=== PATIENT | female | born 1995 | race African-American/Black ===

== ENCOUNTER 2024-09-01 23:24 | Emergency (ER) | payer MEDICAID ==
[~2024-09-01] VITALS: Ht 177.8 cm; Wt 181.8 kg
[2024-09-01 23:37] VITALS: TEMP 98.4
[2024-09-02 00:10] LABS: COVID AG,FIA SOURCE NASAL SWAB
[2024-09-02 00:14] LABS: HEMATOCRIT 37.1 % (36-46); HEMOGLOBIN 11.5 g/dL (12.0-16.0); LYMPHOCYTES # (AUTO) 3.4 K/uL (1.0-4.8); LYMPHOCYTES % (AUTO) 25.9 % (22.0-44.0); MEAN CORPUSCULAR HEMOGLOBIN 25.9 pg (26.0-34.0); MEAN CORPUSCULAR VOLUME 84 fL (80-100); MONOCYTES # (AUTO) 0.7 K/uL (0.1-1.0); MONOCYTES % (AUTO) 5.1 % (2.0-9.0); PLATELET COUNT (AUTO) 329 K/uL (150-450); RED BLOOD CELL COUNT(AUTO) 4.44 MIL/uL (4.00-5.20); RED CELL DISTRIBUTION WIDTH 14.8 % (11.5-14.5); WHITE BLOOD COUNT (AUTO) 13.1 K/uL (4.5-11.0)
[2024-09-02 00:18] LABS: INFLUENZA TYPE A NEGATIVE FOR TYPE A (NEGATIVE); INFLUENZA TYPE B NEGATIVE FOR TYPE B (NEGATIVE); SARS-COV2 (COVID) ANTIGEN,FIA Negative (Negative)
[2024-09-02 00:26] VITALS: BP 128/63
[2024-09-02 00:26] LABS: ANION GAP 8 mmol/L (8-16); CALCIUM, TOTAL 8.7 mg/dL (8.8-10.5); CARBON DIOXIDE 30 mmol/L (22-29); CHLORIDE 104 mmol/L (98-107); CREATININE 0.85 mg/dL (0.60-1.30); GLOMERULAR FILTR. RATE CALC > 60 mL/min (>60); GLUCOSE,RANDOM 87 mg/dL (70-110); POTASSIUM 3.7 mmol/L (3.5-5.1); SODIUM SERUM 142 mmol/L (136-145); UREA NITROGEN, BLOOD 10 mg/dL (7-18)
[2024-09-02] MEDS: MethylPREDNISolone SOD SUCC 125 MG/2 ML VIAL IVP ONE (00:31)
[2024-09-02] MEDS ORDERED: 0.9% SODIUM CHLORIDE 15 ML NEB SOLUTION NEB ONE ×2 (00:31→01:37)
[2024-09-02] MEDS: SODIUM CHLORIDE 0.9% 1,000 ML IV ONE (00:32)
[2024-09-02] MEDS: IPRATROPIUM BROMIDE 0.5 MG/2.5 ML NEB SOLUTION NEB ONE ×2 (00:34→01:44)
[2024-09-02] MEDS: ALBUTEROL SULFATE 2.5 MG/0.5 ML 5 ML NEB SOLUTION NEB ONE ×2 (00:34→01:44)
[2024-09-02 00:36] LABS: TROPONIN I-HIGH SENSITIVITY Less Than 4 ng/L (<51)
[2024-09-02 00:37] LABS: B-TYPE NATRIURETIC PEPTIDE < 5 pg/mL (0-100)
[2024-09-02 00:40] VITALS: PULSE 97; RESP 18; O2SAT 93
[2024-09-02 00:50] LABS: ALANINE AMINOTRANSFERASE 22 U/L (12-78); ALBUMIN 3.1 g/dL (3.4-5.0); ALKALINE PHOSPHATASE 65 U/L (46-116); ASPARTATE AMINOTRANSFERASE 12 U/L (15-37); BILIRUBIN,TOTAL 0.2 mg/dL (0.1-1.0); CREATINE KINASE, TOTAL ONLY 136 U/L (26-192); TOTAL PROTEIN, SERUM 6.6 g/dL (6.4-8.2)
[2024-09-02 01:40] VITALS: PULSE 107; RESP 18; O2SAT 94
[2024-09-02] MEDS: ALBUTEROL SULFATE HFA 90 MCG/PUFF 8 GM INHALER IH ONE (01:43)
[2024-09-02 01:45] VITALS: PULSE 81; RESP 20; O2SAT 94
[2024-09-02] MEDS ORDERED: ALBU1.252 NEB (02:07)
[2024-09-02] MEDS ORDERED: PRED-554 PO (02:07)
== END 2024-09-02 03:08 | disposition left against medical advice (07) ==
LOC: EMS 23:24
DX: J45.901 Unspecified asthma with (acute) exacerbation (principal); R06.02 Shortness of breath; R05.9 Cough, unspecified; Z20.822 Contact with and (suspected) exposure to COVID-19
CPT/HCPCS: 71045; 80053; 82550; 83735; 83880; 84484; 84703; 85025; 87804; 93005; 94644; 96361; 96374; 99291; J2919; J3535; J7030; 36415-L1; 36415-TC

== ENCOUNTER 2024-10-15 15:51 | Emergency (ER) | payer MEDICAID ==
[~2024-10-15] VITALS: Ht 177.8 cm; Wt 186.4 kg
[~2024-10-15 15:51] MED LIST: ALBU1.252 NEB
[2024-10-15 15:56] VITALS: TEMP 97.9
[2024-10-15] MEDS ORDERED: 0.9% SODIUM CHLORIDE 15 ML NEB SOLUTION NEB ONE (18:29)
[2024-10-15] MEDS: IPRATROPIUM BROMIDE 0.5 MG/2.5 ML NEB SOLUTION NEB ONE (18:31)
[2024-10-15] MEDS: LEVALBUTEROL 1.25 MG/0.5 ML NEB SOLUTION NEB ONE (18:31)
[2024-10-15 18:38] VITALS: PULSE 86; RESP 18; O2SAT 98
[2024-10-15] MEDS: DEXAMETHASONE SOD PHOS 4 MG/ML 5 ML VIAL IM ONE (19:05)
[2024-10-15] MEDS ORDERED: ALBU18HF12 IH (19:07)
[2024-10-15] MEDS ORDERED: METH4TAB3 PO (19:07)
[2024-10-15 20:17] VITALS: BP 126/70; PULSE 82; RESP 18; O2SAT 97
== END 2024-10-15 20:18 | disposition home or self-care (01) ==
LOC: EMS 15:51
DX: J45.901 Unspecified asthma with (acute) exacerbation (principal)
CPT/HCPCS: 99285; 94644; 96372; J1100; 94060

== ENCOUNTER 2024-11-17 23:59 | Emergency (ER) | payer MEDICAID ==
[~2024-11-17] VITALS: Ht 177.8 cm; Wt 185.4 kg
[~2024-11-17 23:59] MED LIST changes: +ALBU18HF12 IH; +METH4TAB3 PO
[2024-11-18 00:18] VITALS: TEMP 98.3
[2024-11-18 00:38] LABS: BASOPHILS % (AUTO) 0.9 % (0.0-2.0); HEMATOCRIT 36.3 % (36-46); HEMOGLOBIN 11.6 g/dL (12.0-16.0); LYMPHOCYTES # (AUTO) 2.8 K/uL (1.0-4.8); LYMPHOCYTES % (AUTO) 25.6 % (22.0-44.0); MEAN CORPUSCULAR HEMOGLOBIN 26.9 pg (26.0-34.0); MEAN CORPUSCULAR VOLUME 84 fL (80-100); MONOCYTES # (AUTO) 0.5 K/uL (0.1-1.0); MONOCYTES % (AUTO) 4.2 % (2.0-9.0); NEUTROPHILS # (AUTO) 6.6 K/uL (1.8-7.7); NEUTROPHILS % (AUTO) 61.3 % (40.0-70.0); PLATELET COUNT (AUTO) 312 K/uL (150-450); RED BLOOD CELL COUNT(AUTO) 4.33 MIL/uL (4.00-5.20); RED CELL DISTRIBUTION WIDTH 15.3 % (11.5-14.5); WHITE BLOOD COUNT (AUTO) 10.8 K/uL (4.5-11.0)
[2024-11-18] MEDS: IPRATROPIUM BROMIDE 0.5 MG/2.5 ML NEB SOLUTION NEB ONE ×2 (00:40→02:26)
[2024-11-18] MEDS: ALBUTEROL SULFATE 2.5 MG/0.5 ML NEB SOLUTION NEB ONE (00:40)
[2024-11-18 00:47] LABS: ANION GAP 4 mmol/L (8-16); CALCIUM, TOTAL 8.2 mg/dL (8.8-10.5); CARBON DIOXIDE 32 mmol/L (22-29); CHLORIDE 105 mmol/L (98-107); CREATININE 0.92 mg/dL (0.60-1.30); GLOMERULAR FILTR. RATE CALC > 60 mL/min (>60); GLUCOSE,RANDOM 105 mg/dL (70-110); POTASSIUM 4.1 mmol/L (3.5-5.1); SODIUM SERUM 141 mmol/L (136-145); UREA NITROGEN, BLOOD 6 mg/dL (7-18)
[2024-11-18 01:00] VITALS: PULSE 111; RESP 22; O2SAT 93
[2024-11-18 01:15] VITALS: PULSE 110; RESP 20; O2SAT 97
[2024-11-18] MEDS: PredniSONE 20 MG TABLET PO ONE (02:12)
[2024-11-18] MEDS: FUROSEMIDE 20 MG TABLET PO ONE (02:12)
[2024-11-18] MEDS ORDERED: 0.9% SODIUM CHLORIDE 15 ML NEB SOLUTION NEB ONE (02:24)
[2024-11-18] MEDS: ALBUTEROL SULFATE 2.5 MG/0.5 ML 5 ML NEB SOLUTION NEB ONE (02:26)
[2024-11-18 02:30] VITALS: PULSE 112; RESP 22; O2SAT 94
[2024-11-18 02:59] VITALS: BP 161/104; O2SAT 99
[2024-11-18 03:30] VITALS: PULSE 133; RESP 20; O2SAT 97
[2024-11-18] MEDS ORDERED: ALBU18HF12 IH (03:57)
[2024-11-18] MEDS ORDERED: PRED-554 PO (03:57)
[2024-11-18] MEDS ORDERED: POTA8TAB71 PO (03:57)
[2024-11-18] MEDS ORDERED: IPRA3AMP24 NEB (03:57)
[2024-11-18] MEDS ORDERED: FURO20TA5 PO (03:57)
== END 2024-11-18 04:35 | disposition left against medical advice (07) ==
LOC: EMS 11-18
DX: J45.901 Unspecified asthma with (acute) exacerbation (principal); R60.0 Localized edema; I10 Essential (primary) hypertension; F12.90 Cannabis use, unspecified, uncomplicated
CPT/HCPCS: 99285; 71045; 80048; 84703; 85025; 36415; 94644; 93005; J7512; 94640; J7613